=== PATIENT | female | born 1980 ===

== ENCOUNTER 2017-09-01 09:43 | Outpatient (CLI) | payer OTHER ==
[~2017-09-01] VITALS: Ht 161.9 cm; Wt 77.0 kg
[2017-09-01] MEDS ORDERED: levothyroxine PO (10:56)
[2017-09-01] MEDS ORDERED: FOLATAB (10:56)
[2017-09-01 11:12] VITALS: Ht 161.9 cm; Wt 77.0 kg
[2017-09-01] MEDS ORDERED: ONDANSETRON 4 MG TAB PO PRN (11:15)
[2017-09-01] MEDS ORDERED: LEVOTHYROXINE (11:24)
[2017-09-01 11:38] LABS: BASO % 0.1 %; BASO ABS # 0.01 K/uL (0-0.2); EOS % 0.9 %; EOS ABS # 0.08 K/uL (0-0.5); HEMATOCRIT 37.1 % (37-47); HEMOGLOBIN 12.5 g/dL (12.0-16.0); IG# 0.02 K/uL (0.00-0.02); LYMPH % 13.9 %; LYMPH ABS # 1.22 K/uL (1.2-3.4); MEAN CELL VOLUME 87.7 fL (80-100); MEAN CORPUSCULAR HEMOGLOBIN 29.6 pg (25-34); MEAN CORPUSCULAR HGB CONC 33.7 g/dl (32-36); MEAN PLATELET VOLUME 9.7 fL (7.4-10.4); MONO % 4.7 %; MONO ABS # 0.41 K/uL (0.11-0.59); NEUT % 80.2 %; NEUT ABS # 7.04 K/uL (1.4-6.5); PLATELET COUNT 231 K/uL (130-400); RED CELL DISTRIBUTION WIDTH CV 13.4 % (11.5-14.5); RED CELL DISTRIBUTION WIDTH SD 42.7 fL (36.4-46.3); WHITE BLOOD COUNT 8.78 K/uL (4.8-10.8)
[2017-09-01] MEDS: LACTATED RINGER'S 1000ML 1,000 ML IV SCH ×2 (14:18→14:19)
--- NOTE | 2017-09-01 15:51 | Discharge Instructions ---
Discharge Instructions Date of Service Sep 01, 2017. Admission Reason for Admission: Check Labor Discharge Discharge Diagnosis / Problem: Uterine contractions Discharge Goals Goal(s): Continuing OB care Activity Recommendations Activity Limitations: as noted below SPECIAL CARE INSTRUCTIONS: Call Doctor if: * Regular contractions every 5 minutes. * Bleeding * Water breaks or is leaking * Decreased movement * Fever >100.4 degrees F * Pain not relieved by routine measures or pain medication ordered. FOLLOW UP VISIT: Return to Labor and Delivery on for /call for appointment time . Follow-up Visit with: When: . Current Hospital Diet Patient's current hospital diet: Discharge Diet Recommended Diet: Regular Diet Pending Studies Studies pending at discharge: no Medical Emergencies . Who to Call and When: Medical Emergencies: If at any time you feel your situation is an emergency, please call 911 immediately. . Non-Emergent Contact Non-Emergency issues call your: Specialist Call Non-Emergent contact if: temperature is above 100.5, your pain is not controlled, your pain is worsening . . "Provider Documentation" section prepared by Faustina Maldonado. .
== END 2017-09-01 16:09 | disposition home or self-care (01) ==
LOC: C.OPB 09:43 → C.LD 09:45 → C.OPB 16:09
PROVIDERS: ATTEND Obstetrics & Gynecology
DX: O62.9 Abnormality of forces of labor, unspecified (principal); O26.893 Other specified pregnancy related conditions, third trimester; O09.523 Supervision of elderly multigravida, third trimester; Z3A.39 39 weeks gestation of pregnancy; Z85.850 Personal history of malignant neoplasm of thyroid

== ENCOUNTER 2017-09-01 20:38 | Inpatient (IN) | payer OTHER ==
[~2017-09-01] VITALS: Ht 160 cm; Wt 76.8 kg
[~2017-09-01 20:38] MED LIST: FOLATAB; LEVOTHYROXINE; levothyroxine PO
[2017-09-01] MEDS ORDERED: LACTATED RINGER'S 1000ML 1,000 ML IV PRN (21:50)
[2017-09-01 21:51] VITALS: Ht 160 cm; Wt 76.8 kg
[2017-09-01] MEDS ORDERED: INFLUENZA ADMINISTRATION CHARGE ONE (22:30)
[2017-09-01] MEDS ORDERED: INFLUENZA VIRUS QUAD VACCINE 0.5 ML SYR IM. ONE (22:30)
[2017-09-01] MEDS ORDERED: MoRPHine SULFATE 10 MG/ML CARP/VIAL SC STA (23:33)
[2017-09-01] MEDS ORDERED: ONDANSETRON INJ 2 MG/ML 2 ML VIAL IV PRN (23:45)
[2017-09-02] MEDS ORDERED: FENTANYL CITRATE INJ 50 MCG/1 ML 2 ML VIAL ONE (01:42)
[2017-09-02] MEDS ORDERED: FENTANYL 2MCG/ML ROPIV 1.25MG/ML 100ML BAG EPI ONE ×2 (01:42→11:58)
[2017-09-02] MEDS ORDERED: BUPIVACAINE 0.25% 30 ML VIAL ONE (01:42)
[2017-09-02] MEDS ORDERED: EpHEDrine SULFATE INJ 50 MG/ML AMP ONE (01:42)
[2017-09-02] MEDS: LACTATED RINGER'S 1000ML 1,000 ML IV SCH ×4 (02:07→14:14)
[2017-09-02] MEDS ORDERED: LACTATED RINGER'S 1000ML 500 ML IV PRN (03:20)
[2017-09-02] MEDS ORDERED: NALOXONE HCL INJ 1 MG in SODIUM CHLORIDE 0.9% 1000ML 1,000 ML IV PRN (03:20)
[2017-09-02] MEDS ORDERED: ONDANSETRON INJ 2 MG/ML 2 ML VIAL IV PRN (03:30)
[2017-09-02] MEDS ORDERED: DiphenhydrAMINE HCL 50 MG/ML VIAL IV PRN (03:30)
[2017-09-02] MEDS ORDERED: NALOXONE HCL INJ 0.4 MG/1 ML VIAL/CARP IV PRN (03:30)
[2017-09-02] MEDS ORDERED: EpHEDrine SULFATE INJ 50 MG/ML AMP IV PRN (03:30)
[2017-09-02] MEDS ORDERED: NALBUPHINE HCL INJ 10 MG/ML AMP IV PRN (03:30)
[2017-09-02] MEDS: FENTANYL 2MCG/ML ROPIV 1.25MG/ML 100ML BAG EPI PRN ×3 (03:39→19:01)
[2017-09-02] MEDS ORDERED: OXYTOCIN 30 UNITS/500ML NSS IV ONE (19:10)
[2017-09-02] MEDS ORDERED: OXYCODONE/ACETAMINOPHEN 5-325 TAB PO PRN (19:45)
[2017-09-02] MEDS ORDERED: LANOLIN OINT EXT PRN (19:45)
[2017-09-02] MEDS ORDERED: DIPHTHERIA/TETANUS/PERTUSSIS 0.5 ML SYR/VIAL IM. ONE (19:45)
[2017-09-02] MEDS ORDERED: ACETAMINOPHEN 325 MG TAB PO PRN (19:45)
[2017-09-02] MEDS ORDERED: IBUPROFEN 600 MG TAB PO PRN (19:45)
[2017-09-02] MEDS ORDERED: HYDROCORTISONE ACETATE 25 MG SUPP PR PRN (19:45)
[2017-09-02] MEDS ORDERED: SUPERCREAM 0.870 % 15GM JAR EXT PRN (19:45)
[2017-09-02] MEDS ORDERED: OXYTOCIN 30 UNITS/500ML NSS IV PRN (19:45)
[2017-09-02] MEDS: DOCUSATE SODIUM 100 MG CAP PO SCH (20:00)
--- NOTE | 2017-09-02 20:13 | Anesthesia Procedure Note ---
Anesthesia Epidural Removal Nt Date & Time Sep 02, 2017 at 20:13 Vital Signs Pain Intensity: 0.0 Notes Mental Status: alert / awake / arousable, participated in evaluation Nausea / Vomiting: adequately controlled Pain: adequately controlled Airway Patency, RR, SpO2: stable & adequate BP & HR: stable & adequate Hydration State: stable & adequate Neuraxial Anesthesia: was administered Anesthetic Complications: no major complications apparent, pt satisfied with anesthetic care Epidural: removed without complications, with tip intact
[2017-09-02] MEDS: BENZOCAINE 20% AER SPR 82.5 GM CAN EXT PRN (21:37)
[2017-09-02 21:50] VITALS: BP 121/78; PULSE 92; TEMP 36.7; O2SAT 98
[2017-09-02 23:50] VITALS: BP 118/75; PULSE 94; TEMP 36.9; O2SAT 99
--- NOTE | 2017-09-03 00:41 | DELIVERY SUMMARY ---
DATE OF OPERATION: 09/02/2017 TIME OF DELIVERY: 1905. DELIVERY OF PLACENTA: 1908. DELIVERY NOTE: The patient is a 36-year-old 2, para 1, at 39 weeks and 1 day gestation, who was admitted to labor and delivery on the morning of 09/01/2017 in active labor. She has a history of a primary with her first at 37 weeks' gestation, done in [place] due to preeclampsia and IUGR. The patient is wishing to proceed with a trial of labor after section. Risks, benefits and alternatives were discussed with the patient and informed consent was obtained. The patient progressed on her own without any labor augmentation. She did receive an epidural for anesthesia. Artificial rupture of membranes was performed at 1654 on 09/02/2017 with light meconium-stained amniotic fluid noted. She reached complete dilation at 1654. She then pushed to delivery at 190. She delivered a viable male infant in the left occiput anterior position to an intact perineum. The baby was delivered and placed on the patient's abdomen. Delayed cord clamping was performed. The cord was then clamped and cut. Apgars were 8 at 1 minute and 9 at 5 minutes. Please see pediatric notes for further baby assessment. Cord blood was then obtained and an intact placenta with 3-vessel cord was delivered at 190. Oxytocin infusion was then begun. The lower uterine segment and vagina were cleared of any blood clot and debris. Exploration of the perineum noted a second-degree perineal laceration which was repaired with 2-0 and 3-0 Vicryl suture in layers. Excellent hemostasis was noted. She also sustained bilateral periurethral lacerations which were injected with 1% lidocaine for anesthesia and was repaired with 3-0 Vicryl suture in continuous running fashion. Excellent hemostasis was noted. Estimated blood loss was 300 mL. All sponge, instrument and needle counts were found to be correct x2. Both the patient and baby tolerated the delivery well and were in recovery with stable vital signs. I attest to the content of the Intraoperative Record and any orders documented therein. Any exception s are noted below.
[2017-09-03 03:00] VITALS: BP 96/62; PULSE 83; TEMP 36.6; O2SAT 97
[2017-09-03 06:59] LABS: HEMATOCRIT 27.7 % (37-47); HEMOGLOBIN 9.1 g/dL (12.0-16.0)
[2017-09-03] MEDS ORDERED: FERROUS SULFATE 325 MG TAB PO SCH (08:00)
[2017-09-03 08:17] VITALS: BP 101/75; PULSE 95; TEMP 36.5; O2SAT 95
[2017-09-03 08:31] VITALS: O2SAT 95
[2017-09-03] MEDS: DOCUSATE SODIUM 100 MG CAP PO SCH ×2 (08:40→19:45)
[2017-09-03] MEDS: PRENATAL VITAMIN TAB PO SCH (08:41)
--- NOTE | 2017-09-03 10:52 | OB/GYN Progress Note ---
COMPLIANCE SPEC Progress Note Date of Service: Sep 03, 2017. Patient is seen and examined. She feels well, no complaints. Ambulating without dizziness Voiding without difficulty Tolerating regular diet with out N&V Bleeding is minimal No fever/ chills/ CP/ SOB/ N&V/ Leg pain feeding without problems Date Time Temp Pulse Resp B/P (MAP) Pulse Ox O2 Delivery O2 Flow Rate FiO2 09/03/17 08:31 95 Room Air 09/03/17 08:17 36.5 95 16 101/75 (84) 95 09/03/17 03:00 36.6 83 16 96/62 (73) 97 Room Air 09/02/17 23:50 99 Room Air 09/02/17 23:50 36.9 94 18 118/75 (89) 99 Room Air 09/02/17 21:50 36.7 92 18 121/78 (92) 98 Room Air 09/02/17 21:50 98 Room Air Last 24 Hours Test 09/03/17 06:19 Hemoglobin 9.1 g/dL Hematocrit 27.7 % PE: General: Alert, orientedx3, NAD Abd: soft, NT, fundus firm, below Umbilicus Perineum intact, Lochia rubra minimal Ext; NT, no edema AP: 36 yo s/p / , ppd# 1 VSS Afebrile doing well Anemic, asymptomatic, will start iron bid Continue routine care All questions were answered D/C home tomorrow
--- NOTE | 2017-09-03 10:57 | Discharge Instructions ---
Discharge Instructions Date of Service Sep 03, 2017. Admission Reason for Admission: Check Labor Discharge Discharge Diagnosis / Problem: Discharge Goals Goal(s): Routine recovery after delivery Medications Continue Dispensed Medications: supercream, lansinoh, other (Hemorrhoid H for hemorrhoids, Colace, Miralax or Milk of magnesia as needed for constipation.) Activity Recommendations Activity Limitations: as noted below . Current Hospital Diet Patient's current hospital diet: Regular OB Diet, Kosher Diet Discharge Diet Recommended Diet: Regular Diet Pending Studies Studies pending at discharge: no Medical Emergencies . Who to Call and When: Medical Emergencies: If at any time you feel your situation is an emergency, please call 911 immediately. . Non-Emergent Contact Non-Emergency issues call your: Specialist Call Non-Emergent contact if: temperature is above 100.5, your pain is not controlled, your pain is worsening . . "Provider Documentation" section prepared by Faustina Maldonado. .
[2017-09-03 12:13] VITALS: BP 115/71; PULSE 99; TEMP 36.5; O2SAT 99
[2017-09-03 15:35] VITALS: BP 114/73; PULSE 88; TEMP 36.4
[2017-09-03] MEDS: FERROUS SULFATE 325 MG TAB PO SCH (19:45)
[2017-09-03] MEDS ORDERED: BISACODYL 5 MG TABEC PO SCH (20:00)
[2017-09-04 00:10] VITALS: BP 111/74; PULSE 85; TEMP 36.7; O2SAT 99
[2017-09-04] MEDS ORDERED: BISACODYL 10 MG SUPP PR PRN (07:00)
[2017-09-04 07:30] VITALS: BP 112/73; PULSE 81; TEMP 36.7; O2SAT 98
[2017-09-04] MEDS ORDERED: LEVOTHYROXINE 150 MCG TAB PO SCH (07:30)
[2017-09-04] MEDS: PRENATAL VITAMIN TAB PO SCH (07:55)
[2017-09-04] MEDS: DOCUSATE SODIUM 100 MG CAP PO SCH (07:55)
[2017-09-04] MEDS: FERROUS SULFATE 325 MG TAB PO SCH (07:55)
[2017-09-04] MEDS ORDERED: MTR600X PO ×2 (08:23)
--- NOTE | 2017-09-04 08:25 | OB/GYN Progress Note ---
[employer] Progress Note Date of Service Sep 04, 2017. Subjective conversation w/ patient, physical exam Ambulation: ambulating normally Voiding: no voiding problems Passing Gas: Yes Diet Tolerance: Regular Diet Lochia: Small Feeding Type: Breast Feeding Objective Vital Signs Date Time Temp Pulse Resp B/P (MAP) Pulse Ox O2 Delivery O2 Flow Rate FiO2 09/04/17 00:10 36.7 85 18 111/74 (86) 99 Room Air 09/04/17 00:10 99 Room Air 09/03/17 15:35 36.4 88 16 114/73 (87) Room Air 09/03/17 15:35 Room Air 09/03/17 12:13 36.5 99 16 115/71 (86) 99 Room Air 09/03/17 08:31 95 Room Air Physical Exam General Appearance: WELL-APPEARING, NO APPARENT DISTRESS Abdomen: non tender, soft Fundus: Firm Extremities: non-tender, normal inspection, no pedal edema Laboratory Results Last 24 Hours Test 09/04/17 04:44 Assessment and Plan Post- Day Number: 2 Continue Routine Care: DISCHARGED F/U IN 6 WEEKS
[2017-09-04 09:13] LABS: HEMOGLOBIN 9.7 g/dL (12.0-16.0); MEAN CELL VOLUME 87.6 fL (80-100); MEAN CORPUSCULAR HEMOGLOBIN 29.3 pg (25-34); MEAN CORPUSCULAR HGB CONC 33.4 g/dl (32-36); MEAN PLATELET VOLUME 9.1 fL (7.4-10.4); PLATELET COUNT 190 K/uL (130-400); RED CELL DISTRIBUTION WIDTH CV 13.7 % (11.5-14.5); RED CELL DISTRIBUTION WIDTH SD 43.4 fL (36.4-46.3); WHITE BLOOD COUNT 8.85 K/uL (4.8-10.8)
[2017-09-04] MEDS ORDERED: MISC-1040 ×2 (09:49)
[2017-09-04] MEDS: BENZOCAINE 20% AER SPR 82.5 GM CAN EXT PRN (10:04)
--- NOTE | 2017-09-04 12:25 | Discharge Instructions ---
Discharge Instructions Date of Service Sep 04, 2017. Admission Reason for Admission: Check Labor Discharge Discharge Diagnosis / Problem: term pregnacy delivered Discharge Goals Goal(s): Routine recovery after delivery Activity Recommendations Activity Limitations: as noted below Lifting Limitations: no more than 10 pounds Driving or Machine Use: resume 3 days after discharge . Current Hospital Diet Patient's current hospital diet: Regular OB Diet, Kosher Diet Discharge Diet Recommended Diet: Regular Diet Pending Studies Studies pending at discharge: no Medical Emergencies . Who to Call and When: Medical Emergencies: If at any time you feel your situation is an emergency, please call 911 immediately. . Non-Emergent Contact Non-Emergency issues call your: Primary Care Provider . . "Provider Documentation" section prepared by Lambert Telles. .
[2017-09-04 15:27] VITALS: BP_DIAS 73; PULSE 81; TEMP 36.7
== END 2017-09-04 15:32 | disposition home or self-care (01) | DRG 775 ==
LOC: C.OPB 20:38 → C.LD 20:38 → C.OPB 21:53 → C.LD 21:54 → C.OBG 09-02 21:52
PROVIDERS: ADMIT Obstetrics & Gynecology; ATTEND Obstetrics & Gynecology
PROC: 0KQM0ZZ Repair Perineum Muscle, Open Approach (ICD-10-PCS; principal; 2017-09-02)
PROC: 10E0XZZ Delivery of Products of Conception, External Approach (ICD-10-PCS; principal; 2017-09-02)
DX: O70.1 Second degree perineal laceration during delivery (principal); O09.523 Supervision of elderly multigravida, third trimester; Z37.0 Single live birth; Z3A.39 39 weeks gestation of pregnancy